=== PATIENT | female | born 1965 | race Caucasian/White ===

== ENCOUNTER 2017-01-04 13:23 | Emergency (ER) | payer MEDICARE ==
[2017-01-04 14:13] LABS: Hematocrit 39 % (35-47); Hemoglobin 13.2 g/dl (12.0-16.0); Mean Corpuscular HGB Conc 34 g/dl (31-36); Mean Corpuscular Hemoglobin 29 pg (27-31); Mean Corpuscular Volume 85 fL (80-97); Mean Platelet Volume 8 um3 (7.4-10.4); Red Blood Count 4.61 10^6/ul (4.0-5.4); Red Cell Distribution Width 13 % (10.5-15); White Blood Count 14.2 10^3/ul (3.5-10.8)
[2017-01-04 14:28] LABS: Albumin 4.5 g/dL (3.2-5.2); BUN/Creatinine Ratio 15.6 (8-20); EGFR African American 102.5 (>60); EGFR Non-African American 79.7 (>60); Globulin 3.4 g/dL (2-4); Total Bilirubin 0.5 mg/dL (0.2-1.0); Total Protein 7.9 g/dL (6.4-8.9)
--- NOTE | 2017-01-04 14:38 | RAD ---
Indication: Shortness of breath. 2 views of the chest including dual energy PA views demonstrate no mediastinal shift. Heart is of normal size and configuration. Lung jc demonstrate no pleural fluid, pneumonia or pneumothorax. Compared to previous exam of October 11, 2014 no significant change is noted. IMPRESSION: No active cardiopulmonary disease is noted.
--- NOTE | 2017-01-04 15:03 | RAD ---
HISTORY: Pain and swelling, left lower extremity COMPARISONS: None relevant TECHNIQUE: Multiple transverse and longitudinal ultrasound images were obtained of the left lower extremity from the level of the common femoral vein inferiorly through to the infrapopliteal veins using grayscale, color Doppler, and spectral Doppler imaging with and without compression and with augmentation. Comparison images were obtained of the contralateral common femoral vein. FINDINGS: VEINS: The venous system of the left lower extremity is compressible throughout its course, with normal flow on color Doppler imaging and normal response to augmentation on spectral Doppler imaging. SOFT TISSUES: Unremarkable. OTHER FINDINGS: None. IMPRESSION: NO LEFT LOWER EXTREMITY DEEP VEIN THROMBOSIS
--- NOTE | 2017-01-04 15:03 | ED ---
David Estes Matthew, scribed for Juliocesar Isaacs MD on 01/04/17 at 1440 . Palpitations / Dysrhythmia - HPI Summary HPI Summary: A 51 y/o female presents to the ED with palpitations since 4-5 days ago. Associate symptoms include SOB w/ exertion since 4 days ago, pedal edema since 2 weeks ago, and dizziness. She denies chest pain. The pedal edema is worse on the left. She has not been bed bound. Recently, the patient has had some stress, because of her mothers medical problems. She was hospitalized in 2013 for 3-4 days with fluid around the heart and was given Lasix at that time. She has a long cardiac Hx and associated arrhythmia. - History of Current Complaint Chief Complaint: EDDysrhythmPalp Time Seen by Provider: 01/04/17 13:36 Hx Obtained From: Patient Onset/Duration: Gradual Onset, Lasting Days, Still Present Timing: Constant Severity Initially: Moderate Severity Currently: Moderate Character: Fast Aggravating: Exertion Alleviating: Nothing Associated Signs & Symptoms: Dizzy, Shortness of Breath - Allergy/Home Medications Allergies/Adverse Reactions: Allergies Allergy/AdvReac Type Severity Reaction Status Date / Time Iodinated Contrast Media Allergy Severe Anaphylatic Verified 08/28/12 18:50 [CONTRAST DYE] Shock Penicillins Allergy Severe Anaphylatic Verified 08/28/12 18:50 Shock Amitriptyline Allergy Mild Muscle Ache Verified 08/28/12 18:52 PMH/Surg Hx/FS Hx/Imm Hx Cardiovascular History: Reports: Hx Hypertension, Other Cardiovascular Problems/ Disorders - ablation X5 Respiratory History: Reports: Hx Pneumonia GI History: Comment Only: Other GI Disorders - RLQ PAIN X 7 DAYS W FEVER Musculoskeletal History: Reports: Hx Fibromyalgia - Surgical History Surgery Procedure, Year, and Place: cardiac ablations x5 Hx Anesthesia Reactions: No - Immunization History Date of Tetanus Vaccine: PT STATES UNSURE Date of Influenza Vaccine: NONE Infectious Disease History: No Infectious Disease History: Denies: Traveled Outside the [place] in Last 30 Days - Family History Family History: No FHx of blood clots - Social History Alcohol Use: None Substance Use Type: Reports: None Smoking Status (MU): Never Smoked Tobacco Review of Systems Constitutional: Negative Negative: Fever, Chills Eyes: Negative Negative: Erythema ENT: Negative Negative: Sore Throat Positive: Palpitations - Rapid . Negative: Chest Pain Positive: Shortness Of Breath Gastrointestinal: Negative Negative: Abdominal Pain, Vomiting, Nausea Genitourinary: Negative Negative: dysuria, hematuria Positive: Edema - pedal - worse on the left. Negative: Myalgia Skin: Negative Negative: Rash Neurological: Other - Dizziness Psychological: Normal All Other Systems Reviewed And Are Negative: Yes Physical Exam Triage Information Reviewed: Yes Vital Signs On Initial Exam: Initial Vitals Temp Pulse Resp BP Pulse Ox 98.7 F 81 20 127/81 96 01/04/17 13:30 01/04/17 13:30 01/04/17 13:30 01/04/17 13:30 01/04/17 13:30 Vital Signs Reviewed: Yes Appearance: Positive: Well-Appearing, No Pain Distress Skin: Positive: Warm, Dry Head/Face: Positive: Other - Normocephalic; Atraumatic Eyes: Positive: Conjunctiva Clear Dental: Negative: Cervical Lymphadenopathy Neck: Positive: Supple, No Lymphadenopathy, Other: - Musculoskeletal ROM normal neck; No JVD Respiratory/Lung Sounds: Positive: Breath Sounds Present, Other - Normal Effort. Negative: Rales, Rhonchi, Stridor, Tracheal Deviation, Wheezes Cardiovascular: Positive: RRR, Other - Heart sounds normal; Intact distal pulses; The pedal pulses are 2+ and symmetric. Radial pulses are 2+ and symmetric. Negative: Murmur Abdomen Description: Positive: Nontender, Soft, Other: - No Rebound. Negative: Distended, Guarding Musculoskeletal: Positive: Other - Trace edema to the Left LE up to the mid calf Neurological: Positive: Alert, Oriented to Person Place, Time Psychiatric: Positive: Affect/Mood Appropriate - Loly Coma Scale Coma Scale Total: 15 Diagnostics - Vital Signs Vital Signs Temp Pulse Resp BP Pulse Ox 01/04/17 14:07 67 17 124/71 93 01/04/17 13:30 98.7 F 81 20 127/81 96 - Laboratory Lab Results: Lab Results 01/04/17 01/04/17 Range/Units 14:00 14:00 WBC 14.2 H (3.5-10.8) 10^3/ul RBC 4.61 (4.0-5.4) 10^6/ul Hgb 13.2 (12.0-16.0) g/dl Hct 39 (35-47) % MCV 85 (80-97) fL MCH 29 (27-31) pg MCHC 34 (31-36) g/dl RDW 13 (10.5-15) % Plt Count 253 (150-450) 10^3/ul MPV 8 (7.4-10.4) um3 Neut % (Auto) 79.0 (38-83) % Lymph % (Auto) 13.2 L (25-47) % [place] % (Auto) 6.8 (1-9) % Eos % (Auto) 0.6 (0-6) % Baso % (Auto) 0.4 (0-2) % Absolute Neuts (auto) 11.2 H (1.5-7.7) 10^3/ul Absolute Lymphs (auto) 1.9 (1.0-4.8) 10^3/ul Absolute Monos (auto) 1.0 H (0-0.8) 10^3/ul Absolute Eos (auto) 0.1 (0-0.6) 10^3/ul Absolute Basos (auto) 0.1 (0-0.2) 10^3/ul Absolute Nucleated RBC 0.01 10^3/ul Nucleated RBC % 0 Sodium 136 (133-145) mmol/L Potassium 4.0 (3.5-5.0) mmol/L Chloride 100 L (101-111) mmol/L Carbon Dioxide 28 (22-32) mmol/L Anion Gap 8 (2-11) mmol/L BUN 12 (6-24) mg/dL Creatinine 0.77 (0.51-0.95) mg/dL Est GFR ( Amer) 102.5 (>60) Est GFR (Non-Af Amer) 79.7 (>60) BUN/Creatinine Ratio 15.6 (8-20) Glucose 109 H (70-100) mg/dL Calcium 10.0 (8.6-10.3) mg/dL Total Bilirubin 0.50 (0.2-1.0) mg/dL AST 23 (13-39) U/L ALT 21 (7-52) U/L Alkaline Phosphatase 102 (34-104) U/L Troponin I Pending Total Protein 7.9 (6.4-8.9) g/dL Albumin 4.5 (3.2-5.2) g/dL Globulin 3.4 (2-4) g/dL Albumin/Globulin Ratio 1.3 (1-3) TSH Pending Free T4 Pending Result Diagrams: 01/04/17 14:00 01/04/17 14:00 Lab Statement: Any lab studies that have been ordered have been reviewed, and results considered in the medical decision making process. - Radiology CXR Xray Interpretation: No Acute Changes - IMPRESSION: No active cardiopulmonary disease is noted. Radiology Interpretation Completed By: Radiologist - EKG 13:38 Cardiac Rate: NL - 87 bpm EKG Rhythm: Sinus Rhythm EKG Interpretation: NO STEMI Course/Dx - Course Assessment/Plan: Recommended follow-up VQ scan, US, and thyroid function test. Symptoms do not sound cardiac at this time. If imaging and thyroid test are negative the patient can likely be discharged home. - Diagnoses Differential Diagnosis/HQI/PQRI: Positive: Other - anxiety vs fibromyalgia vs low probability of VTE Provider Diagnoses: Heart palpitations, SOB (shortness of breath) Discharge - Discharge Plan Condition: Stable Disposition: OTHER Discharge Disposition Comment: The patient will be signed out to Dr. Ray. The documentation as recorded by the David leo Matthew accurately reflects the service I personally performed and the decisions made by , Juliocesar Isaacs MD.
[2017-01-04 15:20] LABS: TSH (Thyroid Stimulating Horm) 1.09 mcIU/mL (0.34-5.60)
[2017-01-04 15:27] LABS: Free T4 0.67 ng/dL (0.61-1.12)
[2017-01-04 15:46] LABS: Urine Bacteria Absent (Absent); Urine Bilirubin Negative (Negative); Urine Glucose Negative (Negative); Urine Nitrite Negative (Negative)
[2017-01-04 16:12] VITALS: BP 104/87
--- NOTE | 2017-01-04 17:00 | RAD ---
HISTORY: Shortness of breath COMPARISON: October 12, 2014 TECHNIQUE: Pulmonary ventilation/perfusion scintigraphy was performed with dynamic cine images and multiple planar images. DOSE: Ventilation: Xenon-133 5.98 millicuries, administered at 4:15 PM on January 04, 2017 Perfusion: Technetium 99m microaggregated albumin 6.11 millicuries, administered at 4:15 PM on January 04, 2017 FINDINGS: Ventilation: Homogeneous symmetrical ventilation Perfusion: Homogeneous, symmetrical perfusion, without expansion IMPRESSION: NO VENTILATION/PERFUSION MISMATCH TO SUGGEST PULMONARY EMBOLISM
[2017-01-04] MEDS ORDERED: Nitrofurantoin Macrocrystals* 100 MG CAP PO ONE (17:18)
--- NOTE | 2017-01-04 21:07 | ED ---
Lizzy Estes Michael, scribed for Joseph Ray MD on 01/04/17 at 1708 . Progress - Progress Note Progress Note: The patient is a sign out from Dr. Isaacs, and he describes her sx as palpitations but there is concern for potential PE. US legs are normal and VQ is pending. Her lab work was reviewed. Her WBC was 14 with no signs of fever or infection. The 51 y/o female comes to the ED presenting with palpitations that started 5 days ago. She denies any change since arriving to the ED, and the patient states that deep breathes aggravate the palpitations. She also c/o bilateral LE edema, calf tenderness, and urinary sx. The urinary sx started 2 days ago. The pt denies fever. Last admission was on 09/2014- she had presentation of edema and syncope. She was admitted EKG showed diffuse hypokinesis injection fraction 45-50%. CXR showed no acute disease. CT Brain showed no acute disease. VQ Scan showed no PE. Discharge summary dx with bronchitis that was viral as well as some photosensitivity for being on Levaquin. She was also going to follow up with her inside sales manager for Paroxysmal atrial fibrillation. Lasix was attempted with only limited success. Dr. Rasmussen notes were reviewed: EKG-read by Dr. Damian on 04/17/16 showed injection fracture 50% suggestions of diastolic dysfunction. CT chest on 12/30/16 was satisfactory and found 9 mm round glass module suggestive inflammatory in nature. Physical Exam- General: Comfortable, pleasant, alert HEENT: Moist mucosa Neck: soft, supple, no adenopathy, no edema Heart: S1, S2, RRR, no murmurs, rubs, or gallops Lungs: Clear to auscultation, breathing comfortable, no wheezes or rales Abdominal: Soft, flat, nontender Extremities: Bilateral mild trace pinning edema. Bilateral calf tenderness. Neuro: Alert and oriented x 3 Psych: Logical, coherent PLAN: The patient presents with similar sx as 2013 admission. She has hx of diastolic dysfunction and followed closely by inside sales manager. No evidence today of heart failure, PE, severe arrhythmia, PNA, pneumothorax, or DVT. Clinically, she doing very well and maintaining vitals. Under supervision of ED there has been no sudden sx or worsening of her condition. For her swelling weve considered severe anemia, DVT, heart failure, and malnutrition with no evidence of these conditions. She has tried Lasix in past without success. She has frequent episodes of dizziness and syncope and we both agree that it is best to avoid Lasix if possible. Compression stockings were recommended, but the patient due to fibromyalgia said this would be difficult. - Results/Orders Results/Orders: US-Radiologist: No left lower extremity DVT Lung Scan VQ NM-Radiologist: No ventilation perfusion mismatch to suggest PE. Course/Dx - Diagnoses Provider Diagnoses: Heart palpitations, SOB (shortness of breath) The documentation as recorded by the Lizzy leo Michael accurately reflects the service I personally performed and the decisions made by me, Joseph Ray MD.
--- NOTE | 2017-01-06 06:58 | PN ---
Progress Note - Progress Note Note: E. coli grew from Urine Culture. This is a preliminary report. Patient appropriately placed on Macrobid. Will wait for sensitivities. Nothing further at this time.
--- NOTE | 2017-04-17 07:10 | ED ---
Progress - Progress Note Progress Note: The patient is a sign out from Dr. Isaacs, and he describes her sx as palpitations but there is concern for potential PE. US legs are normal and VQ is pending. Her lab work was reviewed. Her WBC was 14 with no signs of fever or infection. The 51 y/o female comes to the ED presenting with palpitations that started 5 days ago. She denies any change since arriving to the ED, and the patient states that deep breathes aggravate the palpitations. She also c/o bilateral LE edema, calf tenderness, and urinary sx. The urinary sx started 2 days ago. The pt denies fever. Last admission was on 09/2014- she had presentation of edema and syncope. She was admitted EKG showed diffuse hypokinesis injection fraction 45-50%. CXR showed no acute disease. CT Brain showed no acute disease. VQ Scan showed no PE. Discharge summary dx with bronchitis that was viral as well as some photosensitivity for being on Levaquin. She was also going to follow up with her bartacker for Paroxysmal atrial fibrillation. Lasix was attempted with only limited success. Dr. Rasmussen notes were reviewed: EKG-read by Dr. Damian on 04/17/16 showed injection fracture 50% suggestions of diastolic dysfunction. CT chest on 12/30/16 was satisfactory and found 9 mm round glass module suggestive inflammatory in nature. Physical Exam- General: Comfortable, pleasant, alert HEENT: Moist mucosa Neck: soft, supple, no adenopathy, no edema Heart: S1, S2, RRR, no murmurs, rubs, or gallops Lungs: Clear to auscultation, breathing comfortable, no wheezes or rales Abdominal: Soft, flat, nontender Extremities: Bilateral mild trace pinning edema. Bilateral calf tenderness. Neuro: Alert and oriented x 3 Psych: Logical, coherent PLAN: The patient presents with similar sx as 2014 admission. She has hx of diastolic dysfunction and followed closely by bartacker. No evidence today of heart failure, PE, severe arrhythmia, PNA, pneumothorax, or DVT. Clinically, she doing very well and maintaining vitals. Under supervision of ED there has been no sudden sx or worsening of her condition. For her swelling weve considered severe anemia, DVT, heart failure, and malnutrition with no evidence of these conditions. She has tried Lasix in past without success. She has frequent episodes of dizziness and syncope and we both agree that it is best to avoid Lasix if possible. Compression stockings were recommended, but the patient due to fibromyalgia said this would be difficult. Disposition: good. diagnosis: sob, palpitations. Discharge home. - Results/Orders Results/Orders: US-Radiologist: No left lower extremity DVT Lung Scan VQ NM-Radiologist: No ventilation perfusion mismatch to suggest PE. Course/Dx - Diagnoses Provider Diagnoses: Heart palpitations, SOB (shortness of breath)
== END 2017-01-04 18:00 | disposition home or self-care (01) ==
LOC: ED 13:23
DX: R00.2 Palpitations (principal); R06.02 Shortness of breath
CPT/HCPCS: 36415; 71020; 78582; 80053; 81003; 81015; 83880; 84439; 84443; 84484; 85025; 87077; 87086; 87186; 93005; 99284; A9540; A9558

== ENCOUNTER 2020-01-08 21:02 | Emergency (ER) | payer MEDICARE ==
--- OUTSIDE RECORDS SUMMARY | 2020-01-08 21:08 | XMS REPORT | Summary of Care ---
:1965 Author Organization [facility] Address [address] [address] Care Team Providers Name Role Phone Noman Rasmussen Primary Care Provider Reason for Referral Medication Prior Authorization (Routine) Status Reason Specialty Diagnoses / Procedures Referred By Contact Referred To Contact Closed Diagnoses Chronic pain syndrome Noman Rasmussen MD [address] [place] [address] Reason for Visit Reason Comments Labs Only last 11/03/18 Hypertension f/u BP; Heart Problem has not seen supervisor home restoration service since last OV Chronic Pain Syndrome fibromyaligia s/s continues; Fall increased falls, believes related to fibromyalgia. Angioedema legs seem to be swelling more Derm Problem bilateral hands increased redness/ itching for past month Medication Refill need meds refilled and pended for approval ( Reference #: [id number] ) Encounter Details Date Type Department Care Team Description 11/19/2019 Office Visit [place] [facility] Noman Rasmussen Chronic pain syndrome (Primary Dx); Medicine Fibromyalgia; [address] [facility] Chronic fatigue; [place] [address] ROAD Psychophysiological insomnia; [phone] [place], [place] Essential hypertension, benign; [address] Premature ventricular contractions (PVCs) (VPCs); [phone] Leg swelling; [phone] Edema, unspecified type ; (Fax) Cough; Hyperproteinemia Allergies Active Allergy Reactions Severity Noted Date Comments Amitriptyline Other 11/07/2007 Muscle weakness Clarithromycin 11/07/2007 Cefdinir GI Reaction 10/13/2008 diarrhea Celecoxib 11/07/2007 Celexa 11/07/2007 Ct Dye Anaphylaxis 05/01/2005 anaphylactic shock, 1989, in [place] at [facility] (now [facility] [place]) Alc-Gabapentin Other 06/11/2008 Muscle weakness Nortriptyline Other 11/07/2007 Muscle weakness Penicillins Anaphylaxis 05/01/2005 Orasone Rash 05/23/2010 documented as of this encounter (statuses as of 11/25/2019) Medications Medication Sig Dispensed Refills Start Date End Date Status Loperamide HCl Take 1 Tab by 0 Active (IMODIUM A-D) 2 MG mouth Oral Tab NEEDED. Albuterol Sulfate Take 2 Sprays 1 Each 5 02/23/2016 Active 108 (90 BASE) by inhalation MCG/ACT Inhalation EVERY FOUR AEROSOL POWDER, HOURS NEEDED BREATH ACTIVATED (wheezing). Budesonide, Take 2 Act by 1 Inhaler 11 03/08/2016 Active Inhalation, 180 inhalation MCG/ACT Inhalation TWICE DAILY. AEROSOL POWDER, BREATH ACTIVATED ipratropium instill 2 30 mL 11 08/14/2018 Active (ATROVENT) 0.03 % sprays into Nasal Solution each nostril once daily if needed Naloxone HCl 4 [place] 1 [place] 2 Each 3 03/30/2019 Active MG/0.1ML Nasal in nose Liquid NEEDED (loss of consciousness). verapamil take 2 and 1/2 225 Tab 3 05/15/2019 Active (CALAN-SR, ISOPTIN tablets by SR) 240 MG Oral mouth once Tab CR daily IN DIVIDED DOSES as directed by prescriber ibuprofen (MOTRIN) Take 1 Tab by 120 Tab 5 05/15/2019 Active 600 MG Oral Tab mouth EVERY SIX HOURS NEEDED (for pain). tizanidine take 1 tablet 150 Tab 5 07/10/2019 Active (ZANAFLEX) 4 MG by mouth every Oral Tab 4 hours if needed Mirtazapine 45 MG take 1 tablet 90 Tab 1 08/04/2019 Active Oral Tab by mouth at bedtime zolpidem (AMBIEN) TAKE 1 TABLET 30 Tab 5 10/15/2019 Active 10 MG Oral BY MOUTH AT TabIndications: BEDTIME IF Insomnia, NEEDED FOR unspecified type SLEEP MAXIMUM DAILY DOSE OF 1 Pregabalin Take 1 Cap by 90 Cap 5 10/15/2019 Active (LYRICA) 150 MG mouth THREE Oral TIMES DAILY. CapIndications: Max Daily Chronic pain Amount: 450 mg. syndrome Zolpidem Tartrate Take 1 Tab by 30 Tab 5 10/15/2019 Active 12.5 MG Oral Tab mouth EVERY CR BEDTIME. Max Daily Amount: 12.5 mg. triamcinolone Apply to 60 g 5 11/19/2019 Active (KENALOG,ARISTOCOR affected areas T) 0.1 % Apply daily as needed externally Cream OXYCONTIN 80 MG Take 1 Tab by 90 Tab 0 11/19/2019 Active Oral Tablet mouth EVERY Extended Release EIGHT HOURS. 12 hour Max Daily Abuse-DeterrentInd Amount: 240 mg. ications: Chronic pain syndrome OXYcodone-acetamin Take 1 Tab by 120 Tab 0 11/19/2019 Active ophen (PERCOCET) mouth EVERY SIX 10-325 MG Oral HOURS NEEDED TabIndications: (pain). Max Chronic pain Daily Amount: 4 syndrome Tabs. zolpidem (AMBIEN) Take 1 Tab by 30 Tab 5 10/15/2019 11/19/20 Discontinued 10 MG Oral mouth EVERY 19 TabIndications: BEDTIME Insomnia, NEEDED unspecified type (insomnia). Max Daily Amount: 10 mg. OXYCONTIN 80 MG Take 1 Tab by 90 Tab 0 10/20/2019 11/19/20 Discontinued Oral Tablet mouth EVERY 19 (Reorder) Extended Release EIGHT HOURS. 12 hour Max Daily Abuse-DeterrentInd Amount: 240 mg. ications: Chronic pain syndrome OXYcodone-acetamin Take 1 Tab by 120 Tab 0 10/20/2019 11/19/20 Discontinued ophen (PERCOCET) mouth EVERY SIX 19 (Reorder) 10-325 MG Oral HOURS NEEDED TabIndications: (pain). Max Chronic pain Daily Amount: 4 syndrome Tabs. documented as of this encounter (statuses as of 11/25/2019) Active Problems Problem Noted Date Atherosclerosis of aorta 01/01/2019 Cardiomyopathy 04/26/2018 Bronchitis, mucopurulent recurrent 04/26/2018 Essential hypertension, benign 05/29/2016 High cholesterol 08/05/2014 Chronic fatigue 05/17/2008 Chronic pain syndrome 03/18/2008 Overview: On chronic opioids, OxyContin and oxycodone with acetaminophen. She is seen every 2 months routinely and she gets prescriptions every month. These are for 30-day supplies. Fibromyalgia 12/25/2007 Insomnia 12/25/2007 Premature ventricular contractions (PVCs) (VPCs) 10/23/2007 documented as of this encounter (statuses as of 11/25/2019) Resolved Problems Problem Noted Date Resolved Date Syncope 12/08/2014 10/06/2015 BMI 25.0-25.9,adult 05/22/2011 12/20/2017 Overview: This patient's BMI has not been calculated due to other patient reason: multiple comorbidities. BMI 26.0-26.9,adult 05/08/2011 05/22/2011 Streptococcal sore throat 10/23/2007 12/25/2007 Myalgia and myositis, unspecified 10/23/2007 12/25/2007 Anorexia 10/23/2007 05/17/2008 Anxiety state, unspecified 10/23/2007 03/04/2012 Acute bronchitis 10/23/2007 12/25/2007 Depressive disorder, not elsewhere classified 09/29/2007 03/04/2012 Other premature beats 04/17/2005 12/25/2007 Other malaise and fatigue 04/17/2005 05/17/2008 Paroxysmal ventricular tachycardia 04/17/2005 12/25/2007 Chest pain, unspecified 04/09/2005 05/17/2008 documented as of this encounter (statuses as of 11/25/2019) Immunizations Name Administration Dates Next Due Influenza (IM) Preservative Free 08/18/2019, 09/04/2018, 09/17/2016, 08/23/2011, 08/24/2009 Tetanus Vaccine 07/08/2000 documented as of this encounter Social History Tobacco Use Types Packs/Day Years Used Date Never Smoker Smokeless Tobacco: Never Used Alcohol Use Drinks/Week oz/Week Comments No 0 Standard drinks or equivalent 0.0 Sex Assigned at Date Recorded Not on file Job Start Date Occupation Industry Not on file Not on file Not on file Travel History Travel Start Travel End No recent travel history available. documented as of this encounter Last Filed Vital Signs Vital Sign Reading Time Taken Comments Blood Pressure 138/78 11/19/2019 3:03 PM EST Pulse - - Temperature - - Respiratory Rate - - Oxygen Saturation - - Inhaled Oxygen Concentration - - Weight - - Height - - Body Mass Index - - documented in this encounter Patient Instructions Patient InstructionsNoman Rasmussen MD - 11/19/2019 2:30 PM ESTContinue same medicines See Dr Villafuerte again Get chest X-ray and lab testing today, as listed. I'll notify you of the results with a letter. follow up in 2 months documented in this encounter Progress Notes Noman Rasmussen MD - 11/19/2019 2:30 PM EST PATIENT: Ghazala Song : 1965 DATE OF SERVICE: 11/19/2019 CHIEF COMPLAINT: Chief Complaint Patient presents with Labs Only last 11/03/18 Hypertension f/u BP; Heart Problem has not seen supervisor home restoration service since last OV Chronic Pain Syndrome fibromyaligia s/s continues; Fall increased falls, believes related to fibromyalgia. edema legs seem to be swelling more Derm Problem bilateral hands increased redness/ itching for past month Subjective HISTORY OF PRESENT ILLNESS: Ghazala Song is a 54-y.o. female. HPI Legs more painful. Wore new slippers and caused more leg pain, worsened PVC's. Fell onto right arm/shoulder due to a leg spasm. Legs more swollen, fatmata after riding in car. Swelling worsens leg discomfort which worsens PVC's. Riding stationary bike qOD. If she skips it, legs get even more swollen. Fearful of diuretic therapy due to causing dizziness, weakness. Urged her to avoid salty things. Told her that her swelling might be from verapamil, or possibly from her opioids. Past Medical History: Diagnosis Date Acute bronchitis 10/23/2007 Anorexia 10/23/2007 Anxiety state, unspecified 10/23/2007 CHEST PAIN NOS 04/09/2005 Depressive disorder, not elsewhere classified 09/29/2007 Fibromyalgia Insomnia Intermediate coronary syndrome (HCC) Myalgia and myositis, unspecified 10/23/2007 Other malaise and fatigue 04/17/2005 PAROX VENTRIC TACHYCARD 04/17/2005 Postmenopausal PREMATURE BEATS NEC 04/17/2005 Premature ventricular contractions (PVCs) (VPCs) 10/23/2007 Streptococcal sore throat 10/23/2007 History reviewed. No pertinent family history. Current Outpatient Medications Medication Sig Albuterol Sulfate 108 (90 BASE) MCG/ACT Inhalation AEROSOL POWDER, BREATH ACTIVATED Take 2 Sprays by inhalation EVERY FOUR HOURS NEEDED ( wheezing). Budesonide, Inhalation, 180 MCG/ACT Inhalation AEROSOL POWDER, BREATH ACTIVATED Take 2 Act byinhalation TWICE DAILY. ibuprofen (MOTRIN) 600 MG Oral Tab Take 1 Tab by mouth EVERY SIX HOURS NEEDED (for pain). ipratropium (ATROVENT) 0.03 % Nasal Solution instill 2 sprays into each nostril once daily ifneeded Loperamide HCl (IMODIUM A-D) 2 MG Oral Tab Take 1 Tab by mouth NEEDED. Mirtazapine 45 MG Oral Tab take 1 tablet by mouth at bedtime Naloxone HCl 4 MG/0.1ML Nasal Liquid [place] 1 [place] in nose NEEDED ( loss of consciousness). OXYcodone-acetaminophen (PERCOCET) 10-325 MG Oral Tab Take 1 Tab by mouth EVERY SIX HOURS NEEDED (pain). Max Daily Amount: 4 Tabs. OXYCONTIN 80 MG Oral Tablet Extended Release 12 hour Abuse-Deterrent Take 1 Tab by mouth EVERY EIGHT HOURS. Max Daily Amount: 240 mg. Pregabalin (LYRICA) 150 MG Oral Cap Take 1 Cap by mouth THREE TIMES DAILY. Max Daily Amount: 450 mg. tizanidine (ZANAFLEX) 4 MG Oral Tab take 1 tablet by mouth every 4 hours if needed verapamil (CALAN-SR, ISOPTIN SR) 240 MG Oral Tab CR take 2 and 1/2 tablets by mouth once daily IN DIVIDED DOSES as directed by prescriber zolpidem (AMBIEN) 10 MG Oral Tab TAKE 1 TABLET BY MOUTH AT BEDTIME IF NEEDED FOR SLEEP MAXIMUM DAILY DOSE OF 1 Zolpidem Tartrate 12.5 MG Oral Tab CR Take 1 Tab by mouth EVERY BEDTIME. Max Daily Amount: 12.5 mg. No current facility-administered medications for this visit. Allergies Allergen Reactions Amitriptyline Other Muscle weakness Biaxin [Clarithromycin] Cefdinir GI Reaction diarrhea Celebrex [Celecoxib] Celexa [Celexa] Ivp [Ct Dye] Anaphylaxis anaphylactic shock, 1989, in [place] at [facility] (now [facility] [place]) Neurontin [Alc-Gabapentin] Other Muscle weakness Nortriptyline Other Muscle weakness Pcn [Penicillins] Anaphylaxis Prednisone [Orasone] Rash Social History Socioeconomic History Marital status: Single Spouse name: Not on file Number of children: Not on file Years of education: Not on file Highest education level: Not on file Occupational History Not on file Social Needs Financial resource strain: Not on file Food insecurity Worry: Not on file Inability: Not on file Transportation needs Medical: Not on file Non-medical: Not on file Tobacco Use Smoking status: Never Smoker Smokeless tobacco: Never Used Substance and Sexual Activity Alcohol use: No Alcohol/week: 0.0 standard drinks Drug use: Yes Types: Prescription Sexual activity: Yes Partners: Male Lifestyle Physical activity Days per week: Not on file Minutes per session: Not on file Stress: Not on file Relationships Social connections Talks on phone: Not on file Gets together: Not on file Attends confucianism service: Not on file Active member of club or organization: Not on file Attends meetings of clubs or organizations: Not on file Relationship status: Not on file Intimate partner violence Fear of current or ex partner: Not on file Emotionally abused: Not on file Physically abused: Not on file Forced sexual activity: Not on file Other Topics Concern Back Care Not Asked Bike Helmet Not Asked Blood Transfusions Not Asked Caffeine Concern Not Asked Exercise Not Asked Hobby Hazards Not Asked International Travel Not Asked Service Not Asked Occupational Exposure Not Asked Seat Belt Not Asked Self-Exams Not Asked Sleep Concern Not Asked Special Diet Not Asked Stress Concern Not Asked Weight Concern Not Asked Social History Narrative Has disability status REVIEW OF SYSTEMS: Review of Systems Constitutional: Positive for malaise/fatigue. Negative for fever and weight loss. HENT: Negative for congestion. Eyes: Negative for blurred vision. Respiratory: Positive for shortness of breath. Cardiovascular: Positive for palpitations and leg swelling. Negative for chest pain, orthopnea and claudication. Gastrointestinal: Positive for abdominal pain (chronic). Genitourinary: Negative for dysuria. Musculoskeletal: Positive for back pain, myalgias and neck pain. Skin: Negative for rash. Neurological: Positive for dizziness, weakness and headaches. Negative for tingling, tremors, sensory change, speech change, focal weakness, seizures and loss of consciousness. Endo/Heme/Allergies: Negative for polydipsia. Does not bruise/bleed easily. Psychiatric/Behavioral: Negative for depression. The patient is nervous/anxious and has insomnia. Objective PHYSICAL EXAM: VITALS: BP 138/78 (BP Location: Left arm, Patient Position: Sitting) There is no height or weight on file to calculate BMI. Physical Exam Alert, oriented, in no acute distress. Vitals as above. HEENT: Normocephalic, atraumatic. RUBEN, EOMI. Mouth and ears unremarkable. Neck: No palpable lymphadenopathy in the submandibular, submental, anterior cervical, posterior cervical, or occipital chains, nor in the supraclavicular spaces. No JVD, thyromegaly. LUNGS: clear. HEART: Regular rate and rhythm. ABDOMEN: positive bowel sounds, soft, nontender, no hepatosplenomegaly, masses or bruits. EXTREMITIES: no cyanosis, clubbing, with only trace edema at worst. ASSESSMENT / IMPRESSION: ICD-9-CM ICD-10-CM 1. Chronic pain syndrome treated, but does not want to try a dose reduction. If anything she states her pain is still not controlled 338.4 G89.4 2. Fibromyalgiatreated 729.1 M79.7 3. Chronic fatigueongoing 780.79 R53.82 4. Psychophysiological insomniaongoing. Does not want to try a dose reduction of her soporifics 307.42 F51.04 5. Essential hypertension, benigncontrolled 401.1 I10 COMPREHENSIVE METABOLIC PANEL LIPID PROFILE 6. Premature ventricular contractions (PVCs) (VPCs)treated but she states she is still very symptomatic 427.69 I49.3 CBC WITH DIFFERENTIAL THYROID STIMULATING HORMONE MAGNESIUM LEVEL 7. Leg swellingas per #8 729.81 M79.89 NT PROBNP URINALYSIS (LAB) 8. Edema, unspecified typenot bad today. Check lab work. May also need repeat echocardiogram. Urged her to follow-up with Dr. Villafuerte 782.3 R60.9 THYROID STIMULATING HORMONE 9. Coughpersistent. Check a chest x-ray. Worry about aspiration in this patient is on high-dose opioid 786.2 R05 XR CHEST 2 VIEW PA AND LATERAL ( STANDARD) Patient Instructions Continue same medicines See Dr Villafuerte again Get chest X-ray and lab testing today, as listed. I'll notify you of the results with a letter. follow up in 2 months CC: Dr Villafuerte Author: Noman Rasmussen MD 11/19/2019 15:23 documented in this encounter Plan of Treatment Date Type Specialty Care Team Description 12/30/2019 Office Visit Internal Medicine Noman Rasmussen MD [address] [place] [address] [phone] 03/15/2020 Office Visit [place] [address] [place] [address] [phone] 05/17/2020 Office Visit Internal Medicine Noman Rasmussen MD [address] [place] [address] [phone] Name Type Priority Associated Diagnoses Order Schedule FREE KAPPA/LAMBDA LIGHT Lab Routine Hyperproteinemia Expected: 11/20/2019 CHAINS SERUM (Approximate), Expires: 11/20/2020 PROTEIN ELECTRO, SERUM Lab Routine Hyperproteinemia Expected: 11/20/2019 REFLEX (Approximate), Expires: 05/18/2020 Health Maintenance Due Date Last Done Comments MEDICARE ANNUAL WELLNESS 1965 VISIT PNEUMOCOCCAL 0-64 YRS (1 of 1973 1 - PPSV23) DTaP/Tdap/Td Vaccines (1 - 1978 Tdap) PAP SMEAR 05/26/2012 05/26/2009, 10/02/2006, 09/15/2002, Additional history exists MAMMOGRAM (SCREENING) 12/05/2016 12/05/2015, 11/22/2010 ZOSTER IMMUNIZATION SERIES 2017 (1 of 2) DEPRESSION SCREENING 06/18/2020 06/18/2019 DIABETES SCREENING 11/19/2020 11/19/2019, 11/03/2018, 05/01/2017, Additional history exists LIPID DISORDER SCREENING 11/19/2020 11/19/2019, 11/03/2018, 05/01/2017, Additional history exists Colonoscopy 11/02/2024 11/02/2015 (Postponed), 11/22/2010, 11/22/2010 INFLUENZA VACCINE Completed 08/18/2019, 09/04/2018, 09/17/2016, Additional history exists HEPATITIS A IMMUNIZATION Aged Out No longer eligible SERIES based on patient's age to complete this topic HPV IMMUNIZATION SERIES Aged Out No longer eligible based on patient's age to complete this topic MENINGOCOCCAL VACCINE IMM Aged Out No longer eligible based on patient's age to complete this topic documented as of this encounter Goals Goal Patient Goal Associated Recent Patient-Stated? Author Type Problems Progress Blood Pressure Blood Pressure 138/78 No Valery, < 140/90 (11/19/2019 MD Noman 3:03 PM EST) Note: This is an individualized treatment (blood pressure) goal for Ghazala Song: Displayed above (on the left) is your goal for blood pressure control. Your most recent blood pressure is also shown above, on the right. You should try to achieve blood pressures that are lower than your goal listed above (on the left). Take all prescribed medications as directed Self-management Noman Sainz MD Note: This is an individualized self-management goal for Ghazala Song: Please take all prescribed medications as directed. 1. Do not skip doses. If you cannot afford your medications, talk with your doctor. 2. Use a pill reminder system such as a pill box if needed. Your pharmacist can help you with this. 3. Contact your Pharmacy 5 days before your medication runs out. If you cannot take your medications for any reasons, talk with your doctor. 4. Please bring all of your medication bottles and inhalers (or a list of all your medications/inhalers) with you to every visit. Potential barriers to meeting all of your care plan goals will continue to be addressed on an ongoing basis. documented as of this encounter Procedures Procedure Name Priority Date/Time Associated Diagnosis Comments XR CHEST 2 VIEW PA AND Routine 11/19/2019 4:19 Cough Results for this LATERAL (STANDARD) PM EST procedure are in the results section. URINALYSIS (LAB) Routine 11/19/2019 4:00 Leg swelling Results for this PM EST procedure are in the results section. CBC WITH DIFFERENTIAL Routine 11/19/2019 3:56 Premature Results for this PM EST ventricular procedure are in contractions (PVCs) the results (VPCs) section. NT PROBNP Routine 11/19/2019 3:56 Leg swelling Results for this PM EST procedure are in the results section. THYROID STIMULATING Routine 11/19/2019 3:56 Edema, unspecified Results for this HORMONE PM EST type procedure are in Premature the results ventricular section. contractions (PVCs) (VPCs) MAGNESIUM LEVEL Routine 11/19/2019 3:56 Premature Results for this PM EST ventricular procedure are in contractions (PVCs) the results (VPCs) section. LIPID PROFILE Routine 11/19/2019 3:56 Essential Results for this PM EST hypertension, benign procedure are in the results section. COMPREHENSIVE Routine 11/19/2019 3:56 Essential Results for this METABOLIC PANEL PM EST hypertension, benign procedure are in the results section. documented in this encounter Results XR CHEST 2 VIEW PA AND LATERAL (STANDARD) (11/19/2019 4:19 PM EST) Specimen Impressions Performed At 1. No acute cardiopulmonary disease is seen. Chronic finding, increased interstitial markings unchanged from the previous study Urgency: Routine. This is a routine medical imaging report. Recommendation: No specific imaging recommendation. Signed by Carine Griffin MD, MHA, FCPS on 11/19/2019 11:00 PM Narrative Performed At Procedure(s): XR CHEST 2 VIEW PA AND LATERAL (STANDARD) Date of service: 11/19/2019 3:49 PM Provided clinical information: 54 years, Female, "persisting cough" Procedure and materials: Standard protocol. Procedure: CHEST 2 VIEWS Technique: PA and lateral views of the chest were acquired. Comparison: Chest x-ray of 12/20/2016 and x-rays of 01/02/2018 Findings: There is no confluent pulmonary parenchymal opacity seen. Increased interstitial markings in right middle lobe unchanged from the previous study. Cardioaortic silhouette appears unremarkable. There is normal pulmonary vascularity. The jennifer are normal. No pleural effusion is seen. No pneumothorax is seen. Trachea midline. Mild endplate remodeling is seen of thoracic spine. No acute bony abnormality is seen. Procedure Note Interface, Rad Results - 11/19/2019 11:02 PM EST Procedure(s): XR CHEST 2 VIEW PA AND LATERAL (STANDARD) Date of service: 11/19/2019 3:49 PM Provided clinical information: 54 years, Female, "persisting cough" Procedure and materials: Standard protocol. Procedure: CHEST 2 VIEWS Technique: PA and lateral views of the chest were acquired. Comparison: Chest x-ray of 12/20/2016 and x-rays of 01/02/2018 Findings: There is no confluent pulmonary parenchymal opacity seen. Increased interstitial markings in right middle lobe unchanged from the previous study. Cardioaortic silhouette appears unremarkable. There is normal pulmonary vascularity. The jennifer are normal. No pleural effusion is seen. No pneumothorax is seen. Trachea midline. Mild endplate remodeling is seen of thoracic spine. No acute bony abnormality is seen. IMPRESSION 1. No acute cardiopulmonary disease is seen. Chronic finding, increased interstitial markings unchanged from the previous study Urgency: Routine. This is a routine medical imaging report. Recommendation: No specific imaging recommendation. Signed by Carine Griffin MD, A, PS on 11/19/2019 11:00 PM URINALYSIS (LAB) (11/19/2019 4:00 PM EST) Urine Color Yellow Yellow [facility] Urine Appearance Clear Clear [facility] Urine Glucose Negative Negative mg/dl [facility] Urine Bilirubin Negative Negative [facility] Urine Ketones Negative Negative [facility] Urine Specific 1.023 1.005 - 1.030 [facility] Urine Blood Negative Negative [facility] Urine Ph 6.5 5.0 - 8.0 [facility] Urine Protein Negative Negative mg/dl [facility] Urine Urobilinogen 0.2 0.2 - 1.0 E.U./DL [facility] Urine Nitrite Negative Negative [facility] Urine Leukocytes Negative Negative [facility] Specimen Urine - Urine specimen obtained by clean catch procedure (specimen) Performing Organization Address [facility] [place] [facility] Phone Number [facility] [address] [place] [address] [phone] MAGNESIUM LEVEL (11/19/2019 3:56 PM EST) Magnesium 2.3 1.6 - 2.3 MG/DL [facility] Specimen Blood - Blood specimen (specimen) Performing Organization Address [facility] [place] Phone Number [facility] [address] [place] [address] NT PROBNP (11/19/2019 3:56 PM EST) NT PRO BNP 180 (H) <125 pg/ml [facility] Comment: [facility] Recommended cut points for the diagnostic evaluation of heart failure patients with acute dyspnea* Ages (years) Optimal [place] (pg/ml) <50 450 50-75 900 >75 1800 *The [place] Journal of Cardiology NTproBNP results should be interpreted in the context of the overall picture. Serum concentrations of natriuretic peptides may be elevated in patients with acute myocardial infarction and renal insuffic iency. Certain drugs may alter results. Heterophilic antibodies are known to cause interference with immunoassays. Results which are inconsistent with clinical observation indicate a need for additional testing. NTproBNP testing performed on [employer]. Results will not correlate with other methodologies. Specimen Blood - Blood specimen (specimen) Performing Organization Address [facility] Phone Number [facility] [address] [place] [address] [phone] LIPID PROFILE (11/19/2019 3:56 PM EST) Cholesterol 277 (H) <200 mg/dl [facility] HDL Cholesterol 61 >50 mg/dl [facility] Triglycerides 250 (H) <150 mg/dl [facility] LDL Cholesterol 166 (H) <100 MG/DL [facility] Cholesterol / HDL Ratio 4.5 RATIO [facility] LDL / HDL Ratio 2.7 [facility] Non-HDL Cholesterol 216 (H) 0 - 130 MG/DL [facility] Patient Fasting: No [facility] Specimen Blood - Blood specimen (specimen) Performing Organization Address [facility] Phone Number [facility] [address] [place] [address] [phone] THYROID STIMULATING HORMONE (11/19/2019 3:56 PM EST) TSH 0.70 0.47 - 4.68 uIu/ml [facility] Specimen Blood - Blood specimen (specimen) Performing Organization Address [facility] Phone Number [facility] [address] [place] [address] COMPREHENSIVE METABOLIC PANEL (11/19/2019 3:56 PM EST) Sodium 138 134 - 145 mmol/L [facility] Potassium 4.4 3.5 - 5.1 mmol/L [facility] Chloride 101 98 - 107 mmol/L [facility] CO2 28 22 - 30 mmol/L [facility] Calcium 9.5 8.3 - 10.1 mg/dl [facility] Albumin 4.4 3.5 - 5.0 g/dl [facility] BUN 12 7 - 17 mg/dl [facility] Creatinine 0.6 (L) 0.7 - 1.2 mg/dl [facility] Glucose 91 70 - 99 mg/dl [facility] Total Protein 8.8 (H) 6.3 - 8.2 g/dl [facility] Total Bilirubin 0.4 0.0 - 1.1 MG/DL [facility] AST 45 15 - 46 U/L [facility] ALT 32 9 - 52 U/L [facility] Alkaline 132 40 - 150 U/L [facility] eGFR >60 See Interpretation [facility] Comment: Below ml/min/1.73ml GROUP Estimated GFR Interpretation: LABORATORY Above 60ml/min/1.73m2 = Normal Renal Function 30-59 ml/min/1.73m2 = Stage 3 Chronic Kidney Disease 15-29 ml/min/1.73m2 = Stage 4 Chronic Kidney Disease Less than 15 ml/min/1.73m2 = Stage 5 Chronic Kidney Disease The GFR value is calculated using the Modification of Diet in Renal Disease ( MDRD) Study Equation which can be found at: https://www.kidney.org/content/ogsn-zbxxq-epublual BUN/Creatinine 20 6 - 22 RATIO [facility] Anion Gap 9 3 - 11 mmol/L [facility] A/G Ratio 1.0 0.8 - 2.0 ratio [facility] Specimen Blood - Blood specimen (specimen) Performing Organization Address City/State/[facility] Phone Number [facility] [address] [place] [address] CBC WITH DIFFERENTIAL (11/19/2019 3:56 PM EST) WBC Count 7.59 3.98 - 10.04 K/uL [facility] RBC Count 4.59 3.93 - 5.22 M/UL [facility] Hemoglobin 13.2 11.2 - 15.7 g/dL [facility] Hematocrit 41.2 34.1 - 44.9 % [facility] MCV 89.8 79.4 - 94.8 FL [facility] MCH 28.8 25.6 - 32.2 PG [facility] MCHC 32.0 (L) 32.2 - 35.5 g/dL [facility] Platelet Count 380 (H) 182 - 369 K/uL [facility] MPV 10.2 9.4 - 12.3 FL [facility] RDW 11.9 11.7 - 14.4 % [facility] Neutrophil % 65.5 34.0 - 71.1 % [facility] Lymphocyte % 21.9 19.3 - 51.7 % [facility] Monocyte % 7.5 4.7 - 12.5 % [facility] Eosinophil % 4.2 0.7 - 5.8 % [facility] Basophil % 0.5 0.1 - 1.2 % [facility] nRBC % 0.0 0.0 - 0.2 % [facility] Neutrophil # 4.97 1.56 - 6.13 K/UL [facility] Lymphocyte # 1.66 1.18 - 3.74 K/UL [facility] Monocyte # 0.57 0.24 - 0.86 K/UL [facility] Eosinophil # 0.32 0.04 - 0.36 K/UL [facility] Basophil # 0.04 0.01 - 0.08 K/UL [facility] Immature Gran % 0.4 0.0 - 0.4 % [facility] Immature Gran # 0.03 0.00 - 0.03 K/uL [facility] NRBC # 0.00 0.00 - 0.12 K/uL [facility] Specimen Blood - Blood specimen (specimen) Performing Organization Address City/State/Zipcode Phone Number [facility] [address] [place] [address] [phone] documented in this encounter Visit Diagnoses Diagnosis Fibromyalgia Mylagia and myositis, unspecified Chronic pain syndrome Chronic fatigue Other malaise and fatigue Psychophysiological insomnia Persistent disorder of initiating or maintaining sleep Essential hypertension, benign Premature ventricular contractions (PVCs) (VPCs) Other premature beats Leg swelling Swelling of limb Edema, unspecified type Cough Hyperproteinemia Other disorders of plasma protein metabolism documented in this encounter (Home) [facility] [phone] [place], [place] (Work) [id number] documented as of this encounter
[2020-01-08 21:18] VITALS: BP 125/73
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
--- NOTE | 2020-01-09 11:21 | UC ---
- Progress Note Progress Note: Reviewed reports of Dr. Smith --no change from wet read. NO fracture identified in the right hand. Please advise the patient that the hand xray did not show a fracture of the finger. Course/Dx - Diagnoses Provider Diagnoses: Facial contusion, Contusion of right forearm Discharge ED - Sign-Out/Discharge Documenting (check all that apply): Post-Discharge Follow Up All imaging exams completed and their final reports reviewed: Yes - Discharge Plan Condition: Stable Disposition: HOME Patient Education Materials: Contusion in Adults (ED), Arm Pain (ED), Facial Contusion (ED) Referrals: Noman Rasmussen MD [Primary Care Provider] - 2 Weeks Shawn Rashid MD [Medical Doctor] - If Needed Additional Instructions: CT SCAN OF YOUR MAXILLOFACIAL BONES TODAY WAS UNREMARKABLE. X-RAYS OF THE RIGHT ELBOW, FOREARM, HAND/WRIST ARE UNREMARKABLE ON MY INITIAL INTERPRETATION. WE WILL CALL YOU TOMORROW IF THE RADIOLOGY READ DIFFERS. THERE IS A SUGGESTION OF A FRACTURE OF YOUR THUMB HOWEVER IT MAY JUST BE AN OVERLAPPING SHADOW FROM YOUR ACCESSORY BONE. AGAIN, RADIOLOGY WILL LOOK AT YOUR FILMS TOMORROW AND WE WILL CALL YOU WITH ANY NEW INFORMATION. WEAR THE SLING AND FREDDIE WRAP NEEDED FOR COMPRESSION AND SUPPORT. YOU ALREADY HAVE PAIN MEDICATIONS ON BOARD. YOUR SYMPTOMS SHOULD IMPROVE WITH REST AND TIME OVER THE NEXT COUPLE OF WEEKS. IF YOU'RE NOT IMPROVING EXPECTED FOLLOW- UP WITH ORTHOPEDICS. GO TO THE ER WITHOUT FAIL IF YOU DEVELOP WORSENING SWELLING, PAIN, NUMBNESS/ TINGLING, DISCOLORATION OR ANY OTHER CONCERNING SYMPTOMS - Billing Disposition and Condition Condition: STABLE Disposition: Home
== END 2020-01-08 22:37 | disposition home or self-care (01) ==
LOC: UCEAST 21:02
DX: S00.83XA Contusion of other part of head, initial encounter (principal); I10 Essential (primary) hypertension; I49.8 Other specified cardiac arrhythmias; I48.91 Unspecified atrial fibrillation; S50.11XA Contusion of right forearm, initial encounter; S62.511A Displaced fracture of proximal phalanx of right thumb, initial encounter for closed fracture; Z91.041 Radiographic dye allergy status; Z88.0 Allergy status to penicillin; Z88.8 Allergy status to other drugs, medicaments and biological substances; W22.8XXA Striking against or struck by other objects, initial encounter; Y92.9 Unspecified place or not applicable
CPT/HCPCS: 70486; 99202; G0463

== ENCOUNTER 2020-01-28 21:06 | Emergency (ER) | payer MEDICARE ==
--- OUTSIDE RECORDS SUMMARY | 2020-01-28 21:12 | XMS REPORT | Summary of Care ---
:1965 Author Organization [facility] Address [address] [address] Care Team Providers Name Role Phone Noman Rasmussen Primary Care Provider Reason for Visit Reason Comments Labs Only last done 11/20/19 Hypertension f/u Heart Problem f/u not set up appointment with tow truck operator yet Follow Up f/u seen in clinic on 01/16 dx brochitus; continues with ABX; question if contniues with fevers, cough improved, continues with chest congestion, lethargic Encounter Details Date Type Department Care Team Description 01/19/2020 Office Visit [facility] Noman Rasmussen, Acute bronchitis, unspecified organism (Primary Dx); Medicine Chronic pain syndrome; [address] Essential hypertension, benign; [place] [address] ROAD Fibromyalgia; [phone] [place], [place] Chronic fatigue; [address] Psychophysiological insomnia [phone] Allergies Active Allergy Reactions Severity Noted Date Comments Amitriptyline Other 11/07/2007 Muscle weakness Clarithromycin 11/07/2007 Cefdinir GI Reaction 10/13/2008 diarrhea Celecoxib 11/07/2007 Celexa 11/07/2007 Ct Dye Anaphylaxis 05/01/2005 anaphylactic shock, 1989, in [place] at [facility] (now [facility]) Alc-Gabapentin Other 06/11/2008 Muscle weakness Nortriptyline Other 11/07/2007 Muscle weakness Penicillins Anaphylaxis 05/01/2005 Orasone Rash 05/23/2010 documented as of this encounter (statuses as of 01/24/2020) Medications Medication Sig Dispensed Refills Start Date End Date Status Loperamide HCl Take 1 Tab by 0 Active (IMODIUM A-D) 2 MG mouth Oral Tab NEEDED. Albuterol Sulfate Take 2 Sprays 1 Each 5 02/23/2016 Active 108 (90 BASE) by inhalation MCG/ACT Inhalation EVERY FOUR AEROSOL POWDER, HOURS NEEDED BREATH ACTIVATED (wheezing). ipratropium instill 2 30 mL 11 08/14/2018 Active (ATROVENT) 0.03 % sprays into Nasal Solution each nostril once daily if needed verapamil take 2 and 1/ 225 Tab 3 05/15/2019 Active (CALAN-SR, ISOPTIN tablets by SR) 240 MG Oral mouth once Tab CR daily IN DIVIDED DOSES as directed by prescriber ibuprofen (MOTRIN) Take 1 Tab by 120 Tab 5 05/15/2019 Active 600 MG Oral Tab mouth EVERY SIX HOURS NEEDED (for pain). Mirtazapine 45 MG take 1 tablet 90 [...] % Apply daily as needed externally Cream tizanidine TAKE 1 TABLET 150 Tab 5 01/08/2020 Active (ZANAFLEX) 4 MG BY MOUTH EVERY Oral Tab 4 HOURS IF NEEDED Budesonide, Take 2 Act by 1 Inhaler 11 01/16/2020 Active Inhalation, 180 inhalation MCG/ACT Inhalation TWICE DAILY. AEROSOL POWDER, BREATH ACTIVATEDIndicatio ns: Acute bronchitis, unspecified organism OXYCONTIN 80 MG Take 1 Tab by 90 Tab 0 01/16/2020 Active Oral Tablet mouth EVERY Extended Release EIGHT HOURS. 12 hour Max Daily Abuse-DeterrentInd Amount: 240 mg. ications: Chronic pain syndrome OXYcodone-acetamin Take 1 Tab by 120 Tab 0 01/16/2020 Active ophen (PERCOCET) mouth EVERY SIX 10-325 MG Oral HOURS NEEDED TabIndications: (pain). Max Chronic pain Daily Amount: 4 syndrome Tabs. Azithromycin 500 Take 1 Tab by 7 Tab 0 01/19/2020 Active MG Oral mouth DAILY. TabIndications: Acute bronchitis, unspecified organism Rosuvastatin Take 1 Tab by 30 Tab 5 01/19/2020 Active Calcium (CRESTOR) mouth DAILY. 10 MG Oral Tab Naloxone HCl 4 [place] 1 [place] 2 Each 3 03/30/2019 01/19/20 Discontinued MG/0.1ML Nasal in nose 20 (Patient stopped Liquid NEEDED (loss of the medication) consciousness). Azithromycin 500 Take 1 Tab by 7 Tab 0 01/16/2020 01/19/20 Discontinued MG Oral mouth DAILY. 20 (Reorder) TabIndications: Acute bronchitis, unspecified organism documented as of this encounter (statuses as of 01/24/2020) Active Problems Problem Noted Date Atrial fibrillation with slow ventricular response 01/19/2020 Chronic hip pain 01/19/2020 History of atrial fibrillation without current medication 01/19/2020 Atherosclerosis of aorta 01/01/2019 Cardiomyopathy 04/26/2018 Bronchitis, mucopurulent recurrent 04/26/2018 Essential hypertension, benign 05/29/2016 Hypokalemia due to loss of potassium 10/11/2014 Multiple blisters 10/11/2014 Fainting spell 10/11/2014 Vasculitis 10/09/2014 High cholesterol 08/05/2014 Chronic fatigue 05/17/2008 Chronic pain syndrome 03/18/2008 Overview: On chronic opioids, OxyContin and oxycodone with acetaminophen. She is seen every 2 months routinely and she gets prescriptions every month. These are for 30-day supplies. Fibromyalgia 12/25/2007 Insomnia 12/25/2007 Premature ventricular contractions (PVCs) (VPCs) 10/23/2007 documented as of this encounter (statuses as of 01/24/2020) Resolved Problems Problem Noted Date Resolved Date [...] as of this encounter (statuses as of 01/24/2020) Immunizations Name Administration Dates Next Due Influenza (IM) Preservative Free 08/18/2019, 09/04/2018, 09/17/2016, 08/23/2011, 08/24/2009 Tetanus Vaccine 07/08/2000 documented as of this encounter Social History Tobacco Use Types Packs/Day Years Used Date Never Smoker Smokeless Tobacco: Never Used Alcohol Use Drinks/Week oz/Week Comments No 0 Standard drinks or equivalent 0.0 Sex Assigned at Date Recorded Not on file documented as of this encounter Last Filed Vital Signs Vital Sign Reading Time Taken Comments Blood Pressure 148/78 01/19/2020 2:00 PM EST Pulse 96 01/19/2020 2:00 PM EST Temperature 37.1 01/19/2020 2:00 PM EST C (98.7 F) Respiratory Rate - - Oxygen Saturation 98% 01/19/2020 2:00 PM EST Inhaled Oxygen Concentration - - Weight 93.4 kg (206 lb) 01/19/2020 2:00 PM EST Height 182.9 cm (6') 01/19/2020 2:00 PM EST Body Mass Index 27.94 01/19/2020 2:00 PM EST documented in this encounter Patient Instructions Patient InstructionsNoman Rasmussen MD - 01/19/2020 1:00 PM ESTContinue same medicines If more azithromycin needed, take another course. Another prescription for this was sent to your pharmacy. follow up in 2 months 2 :30 PM EST documented in this encounter Progress Notes Noman Rasmussen MD - 01/19/2020 1:00 PM EST PATIENT: Ghazala Song : 1965 DATE OF SERVICE: 01/19/2020 CHIEF COMPLAINT: Chief Complaint Patient presents with ? Labs Only last done 11/20/19 ? Hypertension f/u ? Heart Problem f/u not set up appointment with tow truck operator yet ? Follow Up f/u seen in clinic on 01/16 dx brochitus; continues with ABX; question if contniues with fevers, cough improved, continues with chest congestion, lethargic Subjective HISTORY OF PRESENT ILLNESS: Ghazala Song is a 54-y.o. female. HPI Mother recently , and she is grieving. Has not followed up with tow truck operator but says she will. Seen 3 days ago with bronchitis, still feels congested and fatigued. Had labs done recently as listed below, and results reviewed with patient. The results are satisfactory. Any abnormalities indicated are insignificant and/or stable, except cholesterol was high. The patient is asked to improve diet and exercise patterns to aid in medical management of this. Told her cholesterol-lowering medicine should also help this problem. She does not want to start this medicine now, says she will discuss it with cardiology. Office Visit on 11/19/2019 Component Date Value Ref Range Status ? WBC Count 11/19/2019 7.59 3.98 - 10.04 K/uL Final ? RBC Count 11/19/2019 4.59 3.93 - 5.22 M/UL Final ? Hemoglobin 11/19/2019 13.2 11.2 - 15.7 g/dL Final ? Hematocrit 11/19/2019 41.2 34.1 - 44.9 % Final ? MCV 11/19/2019 89.8 79.4 - 94.8 FL Final ? MCH 11/19/2019 28.8 25.6 - 32.2 PG Final ? MCHC 11/19/2019 32.0* 32.2 - 35.5 g/dL Final ? Platelet Count 11/19/2019 380* 182 - 369 K/uL Final ? MPV 11/19/2019 10.2 9.4 - 12.3 FL Final ? RDW 11/19/2019 11.9 11.7 - 14.4 % Final ? Neutrophil % 11/19/2019 65.5 34.0 - 71.1 % Final ? Lymphocyte % 11/19/2019 21.9 19.3 - 51.7 % Final ? Monocyte % 11/19/2019 7.5 4.7 - 12.5 % Final ? Eosinophil % 11/19/2019 4.2 0.7 - 5.8 % Final ? Basophil % 11/19/2019 0.5 0.1 - 1.2 % Final ? nRBC % 11/19/2019 0.0 0.0 - 0.2 % Final ? Neutrophil # 11/19/2019 4.97 1.56 - 6.13 K/UL Final ? Lymphocyte # 11/19/2019 1.66 1.18 - 3.74 K/UL Final ? Monocyte # 11/19/2019 0.57 0.24 - 0.86 K/UL Final ? Eosinophil # 11/19/2019 0.32 0.04 - 0.36 K/UL Final ? Basophil # 11/19/2019 0.04 0.01 - 0.08 K/UL Final ? Immature Gran % 11/19/2019 0.4 0.0 - 0.4 % Final ? Immature Gran # 11/19/2019 0.03 0.00 - 0.03 K/uL Final ? NRBC # 11/19/2019 0.00 0.00 - 0.12 K/uL Final ? Sodium 11/19/2019 138 134 - 145 mmol/L Final ? Potassium 11/19/2019 4.4 3.5 - 5.1 mmol/L Final ? Chloride 11/19/2019 101 98 - 107 mmol/L Final ? CO2 11/19/2019 28 22 - 30 mmol/L Final ? Calcium 11/19/2019 9.5 8.3 - 10.1 mg/dl Final ? Albumin 11/19/2019 4.4 3.5 - 5.0 g/dl Final ? BUN 11/19/2019 12 7 - 17 mg/dl Final ? Creatinine 11/19/2019 0.6* 0.7 - 1.2 mg/dl Final ? Glucose 11/19/2019 91 70 - 99 mg/dl Final ? Total Protein 11/19/2019 8.8* 6.3 - 8.2 g/dl Final ? Total Bilirubin 11/19/2019 0.4 0.0 - 1.1 MG/DL Final ? AST 11/19/2019 45 15 - 46 U/L Final ? ALT 11/19/2019 32 9 - 52 U/L Final ? Alkaline Phosphatase 11/19/2019 132 40 - 150 U/L Final ? eGFR 11/19/2019 >60 See Interpretation Below ml/min/1.73ml Sq Final Estimated GFR Interpretation: Above 60ml/min/1.73m2 = Normal Renal Function 30-59 ml/min/1.73m2 = Stage 3 Chronic Kidney Disease 15-29 ml/min/1.73m2 = Stage 4 Chronic Kidney Disease Less than 15 ml/min/1.73m2 = Stage 5 Chronic Kidney Disease The GFR value is calculated using the Modification of Diet in Renal Disease ( MDRD) Study Equation which can be found at: https://www.kidney.org/content/tskp-lbuus-zdyslodi ? BUN/Creatinine Ratio 11/19/2019 20 6 - 22 RATIO Final ? Anion Gap 11/19/2019 9 3 - 11 mmol/L Final ? A/G Ratio 11/19/2019 1.0 0.8 - 2.0 ratio Final ? TSH 11/19/2019 0.70 0.47 - 4.68 uIu/ml Final ? Cholesterol 11/19/2019 277* <200 mg/dl Final ? HDL Cholesterol 11/19/2019 61 >50 mg/dl Final ? Triglycerides 11/19/2019 250* <150 mg/dl Final ? LDL Cholesterol 11/19/2019 166* <100 MG/DL Final ? Cholesterol / HDL Ratio 11/19/2019 4.5 RATIO Final ? LDL / HDL Ratio 11/19/2019 2.7 Final ? Non-HDL Cholesterol 11/19/2019 216* 0 - 130 MG/DL Final ? Patient Fastin11/19/2019 No Final ? NT PRO BNP 11/19/2019 180* <125 pg/ml Final Recommended cut points for the diagnostic evaluation of heart failure patients with acute dyspnea* Ages (years) Optimal [place] (pg/ml) <50 450 50-75 900 >75 1800 *The [place] Journal of Cardiology NTproBNP results should be interpreted in the context of the overall picture. Serum concentrations of natriuretic peptides may be elevated in patients with acute myocardial infarction and renal insufficiency. Certain drugs may alter results. Heterophilic antibodies are known to cause interference withimmunoassays. Results which are inconsistent with clinical observation indicate a need for additional testing. NTproBNP testing performed on [employer]. Results will not correlate with other methodologies. ? Urine Color 11/19/2019 Yellow Yellow Final ? Urine Appearance 11/19/2019 Clear Clear Final ? Urine Glucose 11/19/2019 Negative Negative mg/dl Final ? Urine Bilirubin 11/19/2019 Negative Negative Final ? Urine Ketones 11/19/2019 Negative Negative Final ? Urine Specific [place] 11/19/2019 1.023 1.005 - 1.030 Final ? Urine Blood 11/19/2019 Negative Negative Final ? Urine Ph 11/19/2019 6.5 5.0 - 8.0 Final ? Urine Protein 11/19/2019 Negative Negative mg/dl Final ? Urine Urobilinogen 11/19/2019 0.2 0.2 - 1.0 E.U./DL Final ? Urine Nitrite 11/19/2019 Negative Negative Final ? Urine Leukocytes 11/19/2019 Negative Negative Final ? Magnesium 11/19/2019 2.3 1.6 - 2.3 MG/DL Final Past Medical History: Diagnosis Date ? Acute bronchitis 10/23/2007 ? Anorexia 10/23/2007 ? Anxiety state, unspecified 10/23/2007 ? CHEST PAIN NOS 04/09/2005 ? Depressive disorder, not elsewhere classified 09/29/2007 ? Fibromyalgia ? Insomnia ? Intermediate coronary syndrome (HCC) ? Myalgia and myositis, unspecified 10/23/2007 ? Other malaise and fatigue 04/17/2005 ? PAROX VENTRIC TACHYCARD 04/17/2005 ? Postmenopausal ? PREMATURE BEATS NEC 04/17/2005 ? Premature ventricular contractions (PVCs) (VPCs) 10/23/2007 ? Streptococcal sore throat 10/23/2007 History reviewed. No pertinent family history. Current Outpatient Medications Medication Sig ? Albuterol Sulfate 108 (90 BASE) MCG/ACT Inhalation AEROSOL POWDER, BREATH ACTIVATED Take 2 Sprays by inhalation EVERY FOUR HOURS NEEDED ( wheezing). ? Azithromycin 500 MG Oral Tab Take 1 Tab by mouth DAILY. ? Budesonide, Inhalation, 180 MCG/ACT Inhalation AEROSOL POWDER, BREATH ACTIVATED Take 2 Act by inhalation TWICE DAILY. ? ibuprofen (MOTRIN) 600 MG Oral Tab Take 1 Tab by mouth EVERY SIX HOURS NEEDED (for pain). ? ipratropium (ATROVENT) 0.03 % Nasal Solution instill 2 sprays into each nostril once daily if needed ? Loperamide HCl (IMODIUM A-D) 2 MG Oral Tab Take 1 Tab by mouth NEEDED. ? Mirtazapine 45 MG Oral Tab take 1 tablet by mouth at bedtime ? OXYcodone-acetaminophen (PERCOCET) 10-325 MG Oral Tab Take 1 Tab by mouth EVERY SIX HOURS ASNEEDED (pain). Max Daily Amount: 4 Tabs. ? OXYCONTIN 80 MG Oral Tablet Extended Release 12 hour Abuse-Deterrent Take 1 Tab by mouth EVERY EIGHT HOURS. Max Daily Amount: 240 mg. ? Pregabalin (LYRICA) 150 MG Oral Cap Take 1 Cap by mouth THREE TIMES DAILY. Max Daily Amount:450 mg. ? tizanidine (ZANAFLEX) 4 MG Oral Tab TAKE 1 TABLET BY MOUTH EVERY 4 HOURS IF NEEDED ? triamcinolone (KENALOG,ARISTOCORT) 0.1 % Apply externally Cream Apply to affected areas daily as needed ? verapamil (CALAN-SR, ISOPTIN SR) 240 MG Oral Tab CR take 2 and 1/2 tablets by mouth once daily IN DIVIDED DOSES as directed by prescriber ? zolpidem (AMBIEN) 10 MG Oral Tab TAKE 1 TABLET BY MOUTH AT BEDTIME IF NEEDED FOR SLEEP MAXIMUM DAILY DOSE OF 1 ? Zolpidem Tartrate 12.5 MG Oral Tab CR Take 1 Tab by mouth EVERY BEDTIME. Max Daily Amount: 12.5 mg. No current facility-administered medications for this visit. Allergies Allergen Reactions ? Amitriptyline Other Muscle weakness ? Biaxin [Clarithromycin] ? Cefdinir GI Reaction diarrhea ? Celebrex [Celecoxib] ? Celexa [Celexa] ? Ivp [Ct Dye] Anaphylaxis anaphylactic shock, 1989, in [facility] at [facility] (now [facility]) ? Neurontin [Alc-Gabapentin] Other Muscle weakness ? Nortriptyline Other Muscle weakness ? Pcn [Penicillins] Anaphylaxis ? Prednisone [Orasone] Rash Social History Socioeconomic History ? Marital status: Single Spouse name: Not on file ? Number of children: Not on file ? Years of education: Not on file ? Highest education level: Not on file Occupational History ? Not on file Social Needs ? Financial resource strain: Not on file ? Food insecurity Worry: Not on file Inability: Not on file ? Transportation needs Medical: Not on file Non-medical: Not on file Tobacco Use ? Smoking status: Never Smoker ? Smokeless tobacco: Never Used Substance and Sexual Activity ? Alcohol use: No Alcohol/week: 0.0 standard drinks ? Drug use: Yes Types: Prescription ? Sexual activity: Yes Partners: Male Lifestyle ? Physical activity Days per week: Not on file Minutes per session: Not on file ? Stress: Not on file Relationships ? Social connections Talks on phone: Not on file Gets together: Not on file Attends [employer] service: Not on file Active member of club or organization: Not on file Attends meetings of clubs or organizations: Not on file Relationship status: Not on file ? Intimate partner violence Fear of current or ex partner: Not on file Emotionally abused: Not on file Physically abused: Not on file Forced sexual activity: Not on file Other Topics Concern ? Back Care Not Asked ? Bike Helmet Not Asked ? Blood Transfusions Not Asked ? Caffeine Concern Not Asked ? Exercise Not Asked ? Hobby Hazards Not Asked ? International Travel Not Asked ? Service Not Asked ? Occupational Exposure Not Asked ? Seat Belt Not Asked ? Self-Exams Not Asked ? Sleep Concern Not Asked ? Special Diet Not Asked ? Stress Concern Not Asked ? Weight Concern Not Asked Social History Narrative Has disability status REVIEW OF SYSTEMS: Review of Systems Constitutional: Positive for malaise/fatigue. HENT: Positive for congestion. Eyes: Negative for blurred vision. Respiratory: Positive for cough, sputum production, shortness of breath and wheezing. Negative for hemoptysis. Cardiovascular: Negative for chest pain. Gastrointestinal: Positive for abdominal pain (chronic ). Genitourinary: Negative for frequency. Musculoskeletal: Positive for back pain, joint pain, myalgias and neck pain. Skin: Negative for rash. Neurological: Negative for seizures and loss of consciousness. Endo/Heme/Allergies: Negative for polydipsia. Psychiatric/Behavioral: Negative for depression and memory loss. Objective PHYSICAL EXAM: VITALS: BP (!) 148/78 (BP Location: Left arm, Patient Position: Sitting) | Pulse 96 | Temp 98.7 F (37.1 C) | Ht 6' (1.829 m) | Wt 206 lb (93.4 kg) | SpO2 98% | BMI 27.94 kg/m Body mass index is 27.94 kg/m. Physical Exam Alert, oriented, in no acute [...] masses or bruits. EXTREMITIES: no cyanosis, clubbing, or edema. MSE: Mood not sad, affect not flat. No suicidal or homicidal ideation. No abnormality in thought process or thought content. Insight and judgement good. Well kempt. ASSESSMENT / IMPRESSION: ICD-9-CM ICD-10-CM 1. Acute bronchitis, unspecified organism?take more azithromycin 466.0 J20.9 Azithromycin 500 MG Oral Tab 2. Chronic pain syndrome?unchanged. She refuses a dose reduction trial in her pain medicine 338.4 G89.4 3. Essential hypertension, benign?controlled 401.1 I10 4. Fibromyalgia?treated 729.1 M79.7 5. Chronic fatigue?ongoing 780.79 R53.82 6. Psychophysiological insomnia?ongoing 307.42 F51.04 Patient Instructions Continue same medicines If more azithromycin needed, take another course. Another prescription for this was sent to your pharmacy. follow up in 2 months Author: Noman Rasmussen MD 01/19/2020 14:13 documented in this encounter Plan of Treatment Date Type Specialty Care Team Description 03/15/2020 Office Visit Internal Medicine Noman Rasmussen MD [address] [place] [address] 05/18/2020 Office Visit Internal Medicine Noman Rasmussen MD [address] [place] [address] Health Maintenance Due Date Last Done Comments [...] 05/01/2017, Additional history exists LIPID DISORDER SCREENING 01/19/2021 01/19/2020, 11/19/2019, 11/03/2018, Additional history exists Colonoscopy 11/02/2024 11/02/2015 (Postponed), [...] Type Problems Progress Blood Pressure Blood Pressure 148/78 Kelly Rasmussen, < 140/90 (01/19/2020 MD Noman 2:00 PM EST) Note: This is an individualized treatment (blood pressure) goal for Ghazalamercedes Earlbobby: Displayed above (on the left) is your [...] ongoing basis. documented as of this encounter Results Not on filedocumented in this encounter Visit Diagnoses Diagnosis Acute bronchitis, unspecified organism Chronic pain syndrome Essential hypertension, benign Fibromyalgia Mylagia and myositis, unspecified Chronic fatigue Other malaise and fatigue Psychophysiological insomnia Persistent disorder of initiating or maintaining sleep documented in this encounter (Home) [facility] [phone] [place], [place] (Work) [id number] documented as of this encounter"
--- OUTSIDE RECORDS SUMMARY | 2020-01-28 21:12 | XMS REPORT | Summary of Care ---
:1965 Author Organization [facility] Address [address] [place] [address] Care Team Providers Name Role Phone Noman Rasmussen Primary Care Provider Reason for Visit Reason Comments Fever c/o fever, cough with SOB, dizziness and increased fatigue. Also c/o heart palpitations. Encounter Details Date Type Department Care Team Description 01/16/2020 Office Visit [place] Internal Jeannine Peterson MD Acute bronchitis, unspecified organism (Primary Dx); Medicine [address] Essential hypertension, benign; [address] [place] [address] Chronic pain syndrome [place], [place] [id number] Allergies Active Allergy Reactions Severity Noted Date Comments Amitriptyline Other 11/07/2007 Muscle weakness Clarithromycin 11/07/2007 Cefdinir GI Reaction 10/13/2008 diarrhea Celecoxib 11/07/2007 Celexa 11/07/2007 Ct Dye Anaphylaxis 05/01/2005 anaphylactic shock, 1989, in [place] at [facility] (now [facility] [place]) Alc-Gabapentin Other 06/11/2008 Muscle weakness Nortriptyline Other 11/07/2007 Muscle weakness Penicillins Anaphylaxis 05/01/2005 Orasone Rash 05/23/2010 documented as of this encounter (statuses as of 01/16/2020) Medications Medication Sig Dispensed Refills Start Date [...] once daily if needed Naloxone HCl 4 Hersey 1 Hersey 2 Each 3 03/30/2019 Active MG/0.1ML Nasal [...] Budesonide, Take 2 Act by 1 Inhaler 01/16/2020 Active Inhalation, 180 inhalation MCG/ACT Inhalation TWICE DAILY. AEROSOL POWDER, BREATH ACTIVATEDIndicatio ns: Acute bronchitis, unspecified organism Azithromycin 500 Take 1 Tab by 7 Tab 0 01/16/2020 Active MG Oral mouth DAILY. TabIndications: Acute bronchitis, unspecified organism OXYCONTIN 80 MG [...] Chronic pain Daily Amount: 4 syndrome Tabs. Budesonide, Take 2 Act by 1 Inhaler 11 03/08/2016 01/16/20 Discontinued Inhalation, 180 inhalation 20 (Reorder) MCG/ACT Inhalation TWICE DAILY. AEROSOL POWDER, BREATH ACTIVATED Azithromycin 500 Take 1 Tab by 7 Tab 0 11/26/2019 01/16/20 Discontinued MG Oral Tab mouth DAILY. 20 (Patient stopped the medication) OXYcodone-acetamin Take 1 Tab by 120 Tab 0 12/16/2019 01/16/20 Discontinued ophen (PERCOCET) mouth EVERY SIX 20 (Reorder) 10-325 MG Oral HOURS NEEDED TabIndications: (pain). Max Chronic pain Daily Amount: 4 syndrome Tabs. OXYCONTIN 80 MG Take 1 Tab by 90 Tab 0 12/16/2019 01/16/20 Discontinued Oral Tablet mouth EVERY 20 (Reorder) Extended Release EIGHT HOURS. 12 hour Max Daily Abuse-DeterrentInd Amount: 240 mg. ications: Chronic pain syndrome documented as of this encounter (statuses as of 01/16/2020) Active Problems Problem Noted Date Atherosclerosis of [...] as of this encounter (statuses as of 01/16/2020) Resolved Problems Problem Noted Date Resolved Date [...] as of this encounter (statuses as of 01/16/2020) Immunizations Name Administration Dates Next Due Influenza [...] Sign Reading Time Taken Comments Blood Pressure 90/56 01/16/2020 12:23 PM EST Pulse 94 01/16/2020 12:23 PM EST Temperature 37.3 01/16/2020 12:23 PM EST C (99.1 F) Respiratory Rate 20 01/16/2020 12:23 PM EST Oxygen Saturation 93% 01/16/2020 12:23 PM EST Inhaled Oxygen Concentration - - Weight 94.3 kg (208 lb) 01/16/2020 12:23 PM EST Height 182.9 cm (6') 01/16/2020 12:23 PM EST Body Mass Index 28.21 01/16/2020 12:23 PM EST documented in this encounter Progress Notes Jeannine Peterson MD - 01/16/2020 12:10 PM EST NAME:Ghazala Song 1965: 1965 ENC Date: 01/16/2020 CC: Chief Complaint Patient presents with ? Fever c/o fever, cough with SOB, dizziness and increased fatigue. Also c/o heart palpitations. Ghazala Song is a 54-y.o. female usual patient of Dr Rasmussen Onset of problem Saturday and worse in the last 2 -days ago - Fever / cough - shortness of breath - Has felt more palpitations - Current Outpatient Medications Medication Sig ? Albuterol [...] 1 tablet by mouth at bedtime ? Naloxone HCl 4 MG/0.1ML Nasal Liquid Hersey 1 Hersey in nose NEEDED ( loss of consciousness). ? OXYcodone-acetaminophen (PERCOCET) 10-325 MG Oral Tab [...] No current facility-administered medications for this visit. Patient Active Problem List Diagnosis Date Noted ? Atherosclerosis of aorta (HCC) 01/01/2019 ? Cardiomyopathy (HCC) 04/26/2018 ? Bronchitis, mucopurulent recurrent (HCC) 04/26/2018 ? Essential hypertension, benign 05/29/2016 ? High cholesterol 08/05/2014 ? Chronic fatigue 05/17/2008 ? Chronic pain syndrome 03/18/2008 On chronic opioids, OxyContin and oxycodone with acetaminophen. She is seen every 2 months routinely and she gets prescriptions every month. These are for 30-day supplies. ? Fibromyalgia 12/25/2007 ? Insomnia 12/25/2007 ? Premature ventricular contractions (PVCs) (VPCs) 10/23/2007 History reviewed. No pertinent family history. No cardiopulmonary symptoms No upper or lower GI complaints No urinary tract symptoms. No bruising/ bleeding. No neurological complaints . No insomnia.+ . Social History Tobacco Use ? Smoking status: Never Smoker ? Smokeless tobacco: Never Used Substance Use Topics ? Alcohol use: No Alcohol/week: 0.0 standard drinks ? Drug use: Yes Types: Prescription OBJECTIVE: Hoarse voice BP 90/56 (BP Location: Left arm, Patient Position: Sitting) | Pulse 94 | Temp 99.1 F (37.3 C) | Resp 20 | Ht 6' (1.829 m) | Wt 208 lb (94.3 kg) | SpO2 93% | BMI 28.21 kg/m . Heent neg Neck no JVD, thyromegaly or bruit Lungs Exp rhonchi CV gallop - regular Abd soft, nontender, no organomegaly Ext trace edema; Neuro: intellect intact ; motor including gait unremarkable A/P ICD-9-CM ICD-10-CM 1. Acute bronchitis, unspecified organism - Bronchospasm - Treatment with antibiotic and refill steroid inhaler ( avoid albuterol since tachy today 466.0 J20.9 Budesonide, Inhalation, 180 MCG/ACT Inhalation AEROSOL POWDER, BREATH ACTIVATED Azithromycin 500 MG Oral Tab 2. Essential hypertension, benign Unusually low blood pressure today - Associated with illness- disucssed with patient 401.1 I10 3. Chronic pain syndrome - refilled usual monthly medication- alondra be seeing Dr Rasmussen 01/19 338.4 G89.4 OXYCONTIN 80 MG Oral Tablet Extended Release 12 hour Abuse-Deterrent OXYcodone-acetaminophen (PERCOCET) 10-325 MG Oral Tab There are no Patient Instructions on file for this visit. AUTHOR: Jeannine Peterson MD 12:45 01/16/2020 documented in this encounter Plan of Treatment Date Type Specialty Care Team Description 01/19/2020 Office Visit Internal Medicine Noman Rasmussen MD [address] [place] [phone] 03/15/2020 Office Visit Internal Medicine Noman Rasmussen MD [address] [place] [address] [phone] 05/18/2020 Office Visit Internal Medicine Noman Rasmussen MD [address] [place] [address] [phone] Health Maintenance Due Date Last Done Comments [...] Type Problems Progress Blood Pressure Blood Pressure 90/56 Kelly Rasmussen, < 140/90 (01/16/2020 MD Noman 12:23 PM EST) Note: This is an individualized [...] Visit Diagnoses Diagnosis Acute bronchitis, unspecified organism Essential hypertension, benign Chronic pain syndrome documented in this encounter Guarantor Name Account Type Relation to Date of Phone Billing Patient Address Ghazala Song Personal/Family 1965 [address] (Home) [facility] [phone] [place], [place] (Work) [id number] documented as of this encounter"
[2020-01-28 21:38] VITALS: BP 144/83
[2020-01-28] MEDS ORDERED: HYDROcodone/ACETAMIN 5-325 MG* 1 TAB PO ONE (22:18)
[2020-01-28] MEDS ORDERED: Levofloxacin TAB* 250 MG PO ONE (22:18)
--- NOTE | 2020-01-28 22:26 | UC ---
UC General HPI - HPI Summary HPI Summary: 54-year-old woman comes in with a chief complaint of a left posterior chest pain and right buttock pain. Patient reports her legs gave out on her and she fell on her right buttock lacerating it several days ago. She's been having pain there ever since. No recent bleeding from laceration. Also from a prior fall she has left posterior chest pain. Reports that she's been on Jonnie azithromycin recently upper respiratory infection. Left rib pain is worse with palpation and taking a deep breath or coughing. The right buttock is tender with palpation. - History of Current Complaint Chief Complaint: UCTrauma Stated Complaint: TAILBONE/RIB INJURY Time Seen by Provider: 01/28/20 21:35 Pain Intensity: 10 - Allergy/Home Medications Allergies/Adverse Reactions: Allergies Allergy/AdvReac Type Severity Reaction Status Date / Time amitriptyline Allergy Muscle Ache Verified 01/08/20 21:21 Penicillins Allergy Anaphylatic Verified 01/08/20 21:21 Shock contrast Allergy Anaphylatic Uncoded 01/08/20 21:21 Shock Home Medications: Home Medications Verapamil TAB* [Calan TAB*] 150 mg PO BID 08/28/12 [History Confirmed 01/08/20] Zolpidem CR (NF) [Ambien CR (NF)] 12.5 mg PO BEDTIME 08/28/12 [History Confirmed 01/08/20] Zolpidem TAB* [Ambien*] 10 mg PO BEDTIME 08/28/12 [History Confirmed 01/08/20] oxyCODONE/Acetamin 5/325 MG* [Percocet 5/325 TAB*] 1 tab PO TID PRN 08/28/12 [ History Confirmed 01/08/20] Mirtazapine TAB* [Remeron TAB*] 45 mg PO BEDTIME 10/11/14 [History Confirmed ] Pregabalin 100 mg CAP (*) [Lyrica 100 mg CAP (*)] 150 mg PO TID 10/11/14 [ History Confirmed 01/08/20] oxyCODONE SR TAB(*) [Oxycontin 40 mg (*)] 80 mg PO TID 10/11/14 [History Confirmed 01/08/20] tiZANidine TAB* [Zanaflex TAB*] 8 mg PO QID 10/11/14 [History Confirmed 01/08/20 ] HYDROcodone/ACETAMIN 5-325 MG* [Fisher 5-325 TAB*] 1 tab PO Q6H PRN #15 tab MDD 4 01/28/20 [Rx] Levofloxacin TAB* [Levaquin TAB*] 750 mg PO DAILY #4 tab 01/28/20 [Rx] PMH/Surg Hx/FS Hx/Imm Hx Previously Healthy: Yes Cardiovascular History: Cardiac Disease, Hypertension - Surgical History Surgical History: Yes Surgery Procedure, Year, and Place: cardiac ablations x5 - Family History Known Family History: Positive: Non-Contributory Family History: No FHx of blood clots - Social History Alcohol Use: Daily Substance Use Type: None Smoking Status (MU): Never Smoked Tobacco - Immunization History Most Recent Influenza Vaccination: 2013 Most Recent Tetanus Shot: remote Most Recent Pneumonia Vaccination: never Review of Systems All Other Systems Reviewed And Are Negative: Yes Constitutional: Positive: Other - SEE HPI Skin: Positive: Other - SEE HPI Eyes: Positive: Negative ENT: Positive: Negative Respiratory: Positive: Cough, Other - SEE HPI Cardiovascular: Positive: Chest Pain - SEE HPI Gastrointestinal: Positive: Negative Motor: Positive: Negative Neurovascular: Positive: Negative Musculoskeletal: Positive: Negative Neurological/Mental Status: Positive: Negative Psychological: Positive: Negative Is Patient Immunocompromised?: No Physical Exam Triage Information Reviewed: Yes Appearance: Well-Appearing, Well-Nourished, Pain Distress - MILD WITH EXAM Vital Signs: Initial Vital Signs Temp 99.1 F 01/28/20 21:25 Pulse 80 01/28/20 21:25 Resp 18 01/28/20 21:25 BP 144/83 01/28/20 21:25 Pulse Ox 98 01/28/20 21:25 Vital Signs Reviewed: Yes Eye Exam: Normal Eyes: Positive: Conjunctiva Clear Neck: Positive: Supple Respiratory: Positive: Other: - To palpation left posterior lateral chest wall. There is some disc decreased breath sounds in this area otherwise lungs are clear to auscultation. Cardiovascular: Positive: RRR Musculoskeletal: Positive: Strength Intact, ROM Intact Neurological: Positive: Alert, Muscle Tone Normal Psychological: Positive: Age Appropriate Behavior Skin: Positive: Other - Right buttock has a healing 2.5 cm laceration. The area underneath it and the soft tissue is firm. There is no drainage it's not hot to touch. There is further area of ecchymosis surrounding this area. Course/Dx - Course Course Of Treatment: The laceration of the right buttock does not appear to be infected at this time. The laceration is healing by primary intention. I discussed the x-rays with the patient. I did not see any fracture of the ribs. There is blunting of the left costophrenic angle and an infiltrate in the left lower lung field. Radiologist reading is pending. Patient reports anaphylactic reaction to penicillin. Reports being an Jonnie azithromycin. With a pneumonia there is an option to treat with a cephalosporin along with Jonnie azithromycin. Due to the potential cross reactivity with cephalosporins with penicillins. Patient and I decided against a cephalosporin at this time. Patient reports that she's been on Levaquin before and she's tolerated that well therefore she is being started on Levaquin. For the rib contusion she was started on a incentive spirometer here in clinic can also gave her prescription for Fisher. Patient is to follow- up with her primary care doctor tomorrow. Patient's to get reevaluated if worse or any questions or concerns. - Diagnoses Provider Diagnosis: Contusion of rib on left side, Left lower lobe pneumonia, Laceration of right buttock, Contusion, buttock Discharge ED - Sign-Out/Discharge Documenting (check all that apply): Patient Departure All imaging exams completed and their final reports reviewed: No - Discharge Plan Condition: Stable Disposition: HOME Prescriptions: HYDROcodone/ACETAMIN 5-325 MG* [Fisher 5-325 TAB*] 1 tab PO Q6H PRN #15 tab MDD 4 PRN Reason: Pain - Moderate Levofloxacin TAB* [Levaquin TAB*] 750 mg PO DAILY #4 tab Patient Education Materials: Community Acquired Pneumonia (ED), Contusion in Adults (ED), Laceration Without Closure (ED), Rib Contusion (ED) Referrals: Noman Rasmussen MD [Primary Care Provider] - Additional Instructions: FOLLOW UP WITH YOUR DOCTOR. CALL YOUR DOCTOR TOMORROW AND INFORM THEM OF YOUR PNEUMONIA DIAGNOSIS AND DISCUSS THE LEVAQUIN PRESCRIPTION. GET REEVALUATED SOONER IF NOT IMPROVED. GO TO THE EMERGENCY DEPARTMENT IF WORSE; PAIN, FEVER, SHORTNESS OF BREATH, YOU FEEL ILL OR ANY QUESTIONS OR CONCERNS. USE THE INCENTIVE SPIROMETER EVERY 4 HOURS OR MORE FREQUENTLY TO HELP AVOID A RESPIRATORY INFECTION. - Billing Disposition and Condition Condition: STABLE Disposition: Home
--- NOTE | 2020-01-29 13:30 | UC ---
- Progress Note Progress Note: I CALLED PT AND LEFT A MESSAGE TO CALL BACK. PLEASE CONFIRM PT HAS CLOSE PCP FOLLOW-UP. XRAYS SHOW POTENTIAL NONDISPLACED FRACTURE AT THE LEFT FOURTH RIB. SMALL DEPENDENT LEFT PLEURAL EFFUSION AND BASILAR ATELECTASIS. NO CLEAR PNEUMONIA. CONTINUE CURRENT MANAGEMENT AND F/U PCP. TO ER IF SX WORSEN. Course/Dx - Diagnoses Provider Diagnoses: Contusion of rib on left side, Left lower lobe pneumonia, Laceration of right buttock, Contusion, buttock Discharge ED - Sign-Out/Discharge Documenting (check all that apply): Post-Discharge Follow Up All imaging exams completed and their final reports reviewed: Yes - Discharge Plan Condition: Stable Disposition: HOME Prescriptions: HYDROcodone/ACETAMIN 5-325 MG* [[place] 5-325 TAB*] 1 tab PO Q6H PRN #15 tab MDD 4 PRN Reason: Pain - Moderate Levofloxacin TAB* [Levaquin TAB*] 750 mg PO DAILY #4 tab Patient Education Materials: Community Acquired Pneumonia (ED), Contusion in Adults (ED), Laceration Without Closure (ED), Rib Contusion (ED) Referrals: Noman Rasmussen MD [Primary Care Provider] - Additional Instructions: FOLLOW UP WITH YOUR DOCTOR. CALL YOUR DOCTOR TOMORROW AND INFORM THEM OF YOUR PNEUMONIA DIAGNOSIS AND DISCUSS THE LEVAQUIN PRESCRIPTION. GET REEVALUATED SOONER IF NOT IMPROVED. GO TO THE EMERGENCY DEPARTMENT IF WORSE; PAIN, FEVER, SHORTNESS OF BREATH, YOU FEEL ILL OR ANY QUESTIONS OR CONCERNS. USE THE INCENTIVE SPIROMETER EVERY 4 HOURS OR MORE FREQUENTLY TO HELP AVOID A RESPIRATORY INFECTION. - Billing Disposition and Condition Condition: STABLE Disposition: Home
--- NOTE | 2020-01-29 13:48 | UC ---
- Progress Note Progress Note: PATIENT CALLED BACK. NAME AND DATE OF VERIFIED. NOTIFIED OF X-RAY RESULTS. SHE REPORTS SYMPTOMS ARE STABLE. SHE IS GOING TO FOLLOW UP WITH HER PCP NEXT WEEK. ENCOURAGED TO GO TO THE ER IF HER SYMPTOMS WORSEN. Course/Dx - Diagnoses Provider Diagnoses: Contusion of rib on left side, Left lower lobe pneumonia, Laceration of right buttock, Contusion, buttock Discharge ED - Sign-Out/Discharge Documenting (check all that apply): Post-Discharge Follow Up All imaging exams completed and their final reports reviewed: Yes - Discharge Plan Condition: Stable Disposition: HOME Prescriptions: HYDROcodone/ACETAMIN 5-325 MG* [[place] 5-325 TAB*] 1 tab PO Q6H PRN #15 tab MDD 4 PRN Reason: Pain - Moderate Levofloxacin TAB* [Levaquin TAB*] 750 mg PO DAILY #4 tab Patient Education Materials: Community Acquired Pneumonia (ED), Contusion in Adults (ED), Laceration Without Closure (ED), Rib Contusion (ED) Referrals: Noman Rasmussen MD [Primary Care Provider] - Additional Instructions: FOLLOW UP WITH YOUR DOCTOR. CALL YOUR DOCTOR TOMORROW AND INFORM THEM OF YOUR PNEUMONIA DIAGNOSIS AND DISCUSS THE LEVAQUIN PRESCRIPTION. GET REEVALUATED SOONER IF NOT IMPROVED. GO TO THE EMERGENCY DEPARTMENT IF WORSE; PAIN, FEVER, SHORTNESS OF BREATH, YOU FEEL ILL OR ANY QUESTIONS OR CONCERNS. USE THE INCENTIVE SPIROMETER EVERY 4 HOURS OR MORE FREQUENTLY TO HELP AVOID A RESPIRATORY INFECTION. - Billing Disposition and Condition Condition: STABLE Disposition: Home
== END 2020-01-28 22:47 | disposition home or self-care (01) ==
LOC: UCEAST 21:06
DX: J18.9 Pneumonia, unspecified organism (principal); S30.0XXA Contusion of lower back and pelvis, initial encounter; S31.811A Laceration without foreign body of right buttock, initial encounter; S20.212A Contusion of left front wall of thorax, initial encounter; I10 Essential (primary) hypertension; Z79.899 Other long term (current) drug therapy; Z88.0 Allergy status to penicillin; Z91.041 Radiographic dye allergy status; Z88.8 Allergy status to other drugs, medicaments and biological substances; W19.XXXA Unspecified fall, initial encounter; Y92.9 Unspecified place or not applicable
CPT/HCPCS: 99212; A9270-GY; G0463